=== PATIENT | female | born 1990 | race Caucasian/White ===

== ENCOUNTER 2022-04-19 16:46 | Emergency (ER) | payer OTHER ==
[2022-04-19 18:18] LABS: HBSAB Concentration Less than 8.00 mIU/mL; HIV (1/2) Antibody/Antigen Non-Reactive (NonReactive); HIV 1/2 INDEX 0.08 S/CO (<1.00); Hep B Surf AB Non-Reactive (NonReactive); Hep C IgG Ab Non-Reactive (NonReactive); Hep C Index 0.05 S/CO (0-0.79)
== END 2022-04-19 17:30 | disposition home or self-care (01) ==
LOC: ERS 16:46
DX: S51.852A Open bite of left forearm, initial encounter (principal); Z57.9 Occupational exposure to unspecified risk factor; W50.3XXA Accidental bite by another person, initial encounter; I10 Essential (primary) hypertension; Z79.899 Other long term (current) drug therapy
CPT/HCPCS: 36415; 99283